=== PATIENT | female | born 1990 | race Hispanic/Latino ===

== ENCOUNTER 2023-01-03 21:24 | Emergency (ER) | payer MEDICAID, OTHER ==
[~2023-01-03] VITALS: Ht 165.1 cm; Wt 77.6 kg
[2023-01-03 21:26] VITALS: BP 153/88
[2023-01-03] MEDS ORDERED: KETOROLAC 15MG/ML VIAL (15MG/ML) IV ONE (22:30)
[2023-01-03] MEDS ORDERED: CLINDAMYCIN IVPB 600MG/50ML 50 ML IV SCH (22:30)
[2023-01-03] MEDS ORDERED: CLINDAMYCIN IVPB 900MG/50ML 50 ML IV ONE (23:20)
[2023-01-04] MEDS ORDERED: CLIN-141 PO (00:05)
[2023-01-04] MEDS ORDERED: CLINDAMYCIN 150 MG CAP PO ONE (00:30)
== END 2023-01-04 00:14 | disposition home or self-care (01) ==
LOC: EDH 21:24
DX: K04.7 Periapical abscess without sinus (principal); Z98.890 Other specified postprocedural states
CPT/HCPCS: 99284; 96365; 96375; J1885; J3490